=== PATIENT | female | born 1965 ===

== ENCOUNTER 2023-06-16 08:51 | Outpatient (CLI) | payer OTHER ==
[~2023-06-16 08:51] MED LIST: OSEL75CA PO; PROVENTIL2.5 MG/3 M; SYMBICORT 16010.2 GM; TRAMADOL HCL50 MG PO
== END 2023-06-16 09:03 | disposition home or self-care (01) ==
LOC: RX STUDY 08:51
PROVIDERS: ATTEND Internal Medicine
DX: R13.12 Dysphagia, oropharyngeal phase (principal)